=== PATIENT | male | born 1950 | race Caucasian/White ===

== ENCOUNTER 2017-11-11 01:51 | Emergency (ER) | payer MEDICARE ==
[~2017-11-11] VITALS: Ht 167.6 cm; Wt 71.0 kg
[2017-11-11 01:55] VITALS: BP_SYST 107; BP_SYST 96; BP_DIAS 60; BP_DIAS 64; PULSE 64; RESP 16; TEMP 98.4; O2SAT 97
[2017-11-11] MEDS ORDERED: TIZA2CAP3 PO (02:01)
[2017-11-11] MEDS ORDERED: NAPR250T4 PO (02:01)
[2017-11-11] MEDS ORDERED: GUAI200T4 PO (02:09)
--- NOTE | 2017-11-11 02:13 | PD ---
HPI Chief Complaint: Syncope/Near-Syncope Time Seen by Provider: 02:08 Travel History International Travel<30 days: No Contact w/Intl Traveler<30days: No Traveled to known affect area: No History of Present Illness HPI The patient is a 67-year-old male that had a near syncopal episode tonight. He took tizanidine around 11 PM. He does not know if it was 4 mg or 2 mg but he knows it was tight tizanidine. At 1:00 the patient felt generally weak in bed and tried to get out of bed and had difficulty walking. When he stood up he felt particularly weak. The patient normally does not take tizanidine because a year and a half ago he had a very similar, almost identical, reaction when he took it. The tizanidine was a replacement for the Flexeril. The patient tonight got diaphoretic with nausea and vomiting. He was given fluids in the ambulance and feels better now. He denies any chest pain. The only other medicine he took tonjaennine was guaifenesin. He took the guaifenesin around 8:00 PM. [facility] Social History Tobacco Use: No Allergies-Medications (Allergen,Severity, Reaction): Coded Allergies: No Known Allergies (Unverified , 11/11/17) Reported Meds & Prescriptions Reported Meds & Active Scripts Active Reported Guaifenesin 200 Mg Tablet 1 Tab PO BID PRN Naproxen 250 Mg Tab 250 Mg PO BID PRN Tizanidine (Tizanidine HCl) 2 Mg Cap 2 Mg PO TID PRN Review of Systems Except as stated in HPI: all other systems reviewed are Neg Physical Exam Narrative GENERAL: The patient is alert, oriented x3 in no apparent distress at this time. His vital signs show blood pressure 107/60 and a repeat blood pressure showed 96/64, the vital signs are otherwise normal. SKIN: Focused skin assessment warm/dry. HEAD: Atraumatic. Normocephalic. EYES: Pupils equal and round. No scleral icterus. No injection or drainage. ENT: No nasal bleeding or discharge. Mucous membranes pink and moist. NECK: Trachea midline. No JVD. CARDIOVASCULAR: Regular rate and rhythm. No murmur appreciated. RESPIRATORY: No accessory muscle use. Clear to auscultation. Breath sounds equal bilaterally. GASTROINTESTINAL: Abdomen soft, non-tender, nondistended. Hepatic and splenic margins not palpable. No guarding or rebound is present. MUSCULOSKELETAL: No obvious deformities. No clubbing. No cyanosis. No edema. NEUROLOGICAL: Awake and alert. No obvious cranial nerve deficits. Motor grossly within normal limits. Normal speech. PSYCHIATRIC: Appropriate mood and affect; insight and judgment normal. Data Data Last Documented VS Vital Signs Date Time Temp Pulse Resp B/P (MAP) Pulse Ox O2 Delivery O2 Flow Rate FiO2 11/11/17 03:16 76 16 102/66 (78) 97 Room Air 11/11/17 01:55 98.4 Orders Orders Electrocardiogram (11/11/17 02:13) Complete Blood Count With Diff (11/11/17 02:13) Comprehensive Metabolic Panel (11/11/17 02:13) Troponin I (11/11/17 02:13) Urinalysis - C+S If Indicated (11/11/17 02:13) Sodium Chlor 0.9% 1000 Ml Inj (Ns 1000 M (11/11/17 02:15) Ondansetron Inj (Zofran Inj) (11/11/17 03:30) Labs Laboratory Tests Test 11/11/17 02:00 White Blood Count 5.9 TH/MM3 Red Blood Count 3.95 MIL/MM3 Hemoglobin 13.0 GM/DL Hematocrit 36.9 % Mean Corpuscular Volume 93.4 FL Mean Corpuscular Hemoglobin 32.8 PG Mean Corpuscular Hemoglobin Concent 35.1 % Red Cell Distribution Width 12.3 % Platelet Count 167 TH/MM3 Mean Platelet Volume 8.1 FL Neutrophils (%) (Auto) 51.5 % Lymphocytes (%) (Auto) 25.1 % Monocytes (%) (Auto) 14.8 % Eosinophils (%) (Auto) 8.1 % Basophils (%) (Auto) 0.5 % Neutrophils # (Auto) 3.0 TH/MM3 Lymphocytes # (Auto) 1.5 TH/MM3 Monocytes # (Auto) 0.9 TH/MM3 Eosinophils # (Auto) 0.5 TH/MM3 Basophils # (Auto) 0.0 TH/MM3 CBC Comment DIFF FINAL Differential Comment Blood Urea Nitrogen 16 MG/DL Creatinine 1.30 MG/DL Random Glucose 94 MG/DL Total Protein 6.6 GM/DL Albumin 3.8 GM/DL Calcium Level 7.7 MG/DL Alkaline Phosphatase 57 U/L Aspartate Amino Transf (AST/SGOT) 17 U/L Alanine Aminotransferase (ALT/SGPT) 21 U/L Total Bilirubin 1.3 MG/DL Sodium Level 141 MEQ/L Potassium Level 3.4 MEQ/L Chloride Level 107 MEQ/L Carbon Dioxide Level 25.5 MEQ/L Anion Gap 9 MEQ/L Estimat Glomerular Filtration Rate 55 ML/MIN Troponin I LESS THAN 0.02 NG/ML MDM Medical Decision Making Medical Screen Exam Complete: Yes Emergency Medical Condition: Yes Medical Record Reviewed: Yes Interpretation(s) The EKG is normal with a normal sinus rhythm rate of 63. The CBC is normal. The complete metabolic profile shows a GFR 55, calcium 7.7, total bilirubin of 1.3 and potassium 3.4 but is otherwise normal. The cardiac enzymes are normal. Differential Diagnosis Tizanidine reaction, gastroenteritis, dehydration, viral syndrome, electrolyte disorder, anemia Narrative Course It is now 0312 and the patient feels much better. He has some minimal nausea. He says he feels much better than he did at home but still has a feeling of minimal weakness. His blood pressure is 102/66. Diagnosis Primary Impression: Medication side effect Additional Impression: Hypotension Additional Instructions: As we discussed, discontinue tizanidine. Drink plenty of liquids. It may be as long as 24 hours till the tizanidine wears off. Follow-up with her primary care physician. Med/Other Pt SpecificInfo: Prescription(s) given Scripts Ondansetron (Zofran) 4 Mg Tab 4 MG PO Q6HR Y for NAUSEA OR VOMITING, #20 TAB 0 Refills Prov: Aaron Duarte MD 11/11/17 Disposition: DISCHARGE HOME Condition: Stable Aaron Duarte MD Nov 11, 2017 02:13
[2017-11-11] MEDS: SODIUM CHLOR 0.9% 1000 ML INJ 1,000 ML IV SCH ×2 (02:29→03:02)
[2017-11-11 02:35] LABS: BASOPHIL % 0.5 % (0.0-2.0); EOSINOPHIL # 0.5 TH/MM3 (0-0.4); EOSINOPHIL % 8.1 % (0.0-4.0); HEMATOCRIT 36.9 % (39.0-51.0); LYMPH % 25.1 % (9.0-44.0); LYMPHOCYTE # 1.5 TH/MM3 (1.0-4.8); MEAN CELL VOLUME 93.4 FL (80.0-100.0); MEAN CORPUSCULAR HEMOGLOBIN 32.8 PG (27.0-34.0); MEAN CORPUSCULAR HGB CONC 35.1 % (32.0-36.0); MEAN PLATELET VOLUME 8.1 FL (7.0-11.0); MONO % 14.8 % (0.0-8.0); MONOCYTE # 0.9 TH/MM3 (0-0.9); NEUT % 51.5 % (16.0-70.0); PLATELET COUNT 167 TH/MM3 (150-450); RED BLOOD COUNT 3.95 MIL/MM3 (4.50-5.90); RED CELL DISTRIBUTION WIDTH 12.3 % (11.6-17.2); WHITE BLOOD COUNT 5.9 TH/MM3 (4.0-11.0)
[2017-11-11 02:43] LABS: CHLORIDE 107 MEQ/L (98-107); SODIUM (NA) 141 MEQ/L (136-145)
[2017-11-11 02:46] LABS: CALCIUM 7.7 MG/DL (8.5-10.1)
[2017-11-11 02:47] LABS: ALBUMIN 3.8 GM/DL (3.4-5.0); BICARBONATE 25.5 MEQ/L (21.0-32.0); BLOOD UREA NITROGEN 16 MG/DL (7-18); GLUCOSE,RANDOM 94 MG/DL (74-106)
[2017-11-11 02:50] LABS: ALT (GPT) 21 U/L (12-78); AST (GOT) 17 U/L (15-37); GLOMERULAR FILTRATION RATE 55 ML/MIN (>89)
[2017-11-11 02:52] LABS: TOTAL BILIRUBIN ADULT 1.3 MG/DL (0.2-1.0); TOTAL PROTEIN 6.6 GM/DL (6.4-8.2)
[2017-11-11 02:53] LABS: ALKALINE PHOSPHATASE 57 U/L (45-117)
[2017-11-11 02:55] LABS: TROPONIN I LESS THAN 0.02 NG/ML (0.02-0.05)
[2017-11-11 03:16] VITALS: BP 102/66; PULSE 76; RESP 16; O2SAT 97
[2017-11-11] MEDS ORDERED: ONDANSETRON HCL 4 MG/2 ML VIAL IV PUSH ONE (03:30)
[2017-11-11] MEDS ORDERED: ZOFR4TAB PO (03:34)
--- NOTE | 2017-11-11 18:15 | EKG ---
Date Performed: 11/11/2017 Time Performed: 02:23:29 PTAGE: 67 years EKG: Sinus rhythm NORMAL ECG NO PREVIOUS TRACING DOCTOR: Angely Lopes Interpretating Date/Time 11/11/2017 18:11:56
== END 2017-11-11 03:45 | disposition home or self-care (01) ==
LOC: PHED 01:51
DX: I95.2 Hypotension due to drugs (principal); R11.2 Nausea with vomiting, unspecified; R61 Generalized hyperhidrosis; R53.1 Weakness; T42.8X5A Adverse effect of antiparkinsonism drugs and other central muscle-tone depressants, initial encounter
CPT/HCPCS: 80053; 84484; 85025; 93005; 96361; 96374; 99284; J2405; J7030